=== PATIENT | male | born 1945 | race Native Hawaiian/Other Pacific Islander ===

== ENCOUNTER 2016-10-16 06:44 | Outpatient (CLI) | payer OTHER, MEDICARE | END 2016-10-17 01:56 | disposition home or self-care (01) | LOC: CT 06:44 | DX: M54.17 Radiculopathy, lumbosacral region (principal) ==

== ENCOUNTER 2016-11-04 04:51 | Outpatient (CLI) | payer OTHER, MEDICARE | END 2016-11-04 05:51 | disposition home or self-care (01) | LOC: LABW 04:51 | PROVIDERS: Internal Medicine Cardiovascular Disease | DX: E78.4 Other hyperlipidemia (principal) | CPT/HCPCS: 36415; 80061 ==

== ENCOUNTER 2018-04-09 08:21 | Outpatient (CLI) | payer OTHER, MEDICARE | END 2018-04-09 21:53 | disposition home or self-care (01) | LOC: MRI 08:21 | DX: M54.5 Low back pain (principal) | CPT/HCPCS: 36415; 82565; 84520; A9576 ==

== ENCOUNTER 2019-09-03 14:43 | Emergency (ER) | payer OTHER, MEDICARE ==
[~2019-09-03] VITALS: Ht 185.4 cm; Wt 95.7 kg
[2019-09-03 14:50] VITALS: TEMP 98.1
[2019-09-03 15:35] LABS: PLATELET COUNT 218 K/uL (142-355)
[2019-09-03 15:39] LABS: POTASSIUM 3.6 mmol/L (3.6-5.2)
[2019-09-03 15:50] VITALS: BP 166/81
== END 2019-09-03 15:50 | disposition home or self-care (01) ==
LOC: ED 14:43
PROVIDERS: Emergency Medicine
DX: L03.114 Cellulitis of left upper limb (principal); W55.01XA Bitten by cat, initial encounter; Y92.89 Other specified places as the place of occurrence of the external cause
CPT/HCPCS: 80053; 85027; 96372; 99283; J0696

== ENCOUNTER 2019-09-22 05:16 | Outpatient (CLI) | payer OTHER, MEDICARE | END 2019-09-22 19:08 | disposition home or self-care (01) | LOC: LABW 05:16 | PROVIDERS: Internal Medicine Cardiovascular Disease | DX: E78.49 Other hyperlipidemia (principal) | CPT/HCPCS: 36415; 80061; 80076 ==

== ENCOUNTER 2020-01-26 05:58 | Outpatient (CLI) | payer OTHER, MEDICARE | END 2020-01-26 23:07 | disposition home or self-care (01) | LOC: LAB 05:58 | PROVIDERS: Internal Medicine Cardiovascular Disease | DX: E78.49 Other hyperlipidemia (principal) | CPT/HCPCS: 36415; 80061; 80076 ==

== ENCOUNTER 2020-02-24 07:15 | Outpatient (CLI) | payer OTHER, MEDICARE ==
[2020-02-24 08:25] LABS: PLATELET COUNT 185 K/uL (142-355)
[2020-02-24 08:41] LABS: POTASSIUM 4.6 mmol/L (3.6-5.2)
== END 2020-02-24 22:29 | disposition home or self-care (01) ==
LOC: LABW 07:15
PROVIDERS: Internal Medicine Cardiovascular Disease
DX: I10 Essential (primary) hypertension (principal)
CPT/HCPCS: 36415; 80053; 85027

== ENCOUNTER 2021-10-27 15:40 | Outpatient (CLI) | payer OTHER, MEDICARE ==
[2021-10-27 15:57] LABS: PLATELET COUNT 230 K/uL (142-355)
== END 2021-10-27 21:10 | disposition home or self-care (01) ==
LOC: LABW 15:40
PROVIDERS: ATTEND Physical Medicine & Rehabilitation Pain Medicine
DX: M48.062 Spinal stenosis, lumbar region with neurogenic claudication (principal); Z79.899 Other long term (current) drug therapy
CPT/HCPCS: 36415; 80048; 85027; 85610; 87070

== ENCOUNTER 2022-03-06 07:04 | Outpatient (CLI) | payer OTHER, MEDICARE | END 2022-03-06 18:48 | disposition home or self-care (01) | LOC: LABW 07:04 | PROVIDERS: ATTEND Nurse Practitioner Family | DX: E78.5 Hyperlipidemia, unspecified (principal) | CPT/HCPCS: 36415; 80061; 80076 ==

== ENCOUNTER 2022-07-18 11:38 | Outpatient (CLI) | payer OTHER, MEDICARE ==
[2022-07-18 12:10] LABS: POTASSIUM 4.2 mmol/L (3.6-5.2)
== END 2022-07-18 20:59 | disposition home or self-care (01) ==
LOC: LABW 11:38
PROVIDERS: ATTEND Internal Medicine Clinical Cardiac Electrophysiology
DX: R60.0 Localized edema (principal)
CPT/HCPCS: 36415; 80048

== ENCOUNTER 2022-07-24 07:13 | Outpatient (CLI) | payer OTHER, MEDICARE ==
[2022-07-24 07:39] LABS: PLATELET COUNT 242 K/uL (142-355)
[2022-07-24 07:40] LABS: POTASSIUM 4.2 mmol/L (3.6-5.2)
== END 2022-07-24 19:33 | disposition home or self-care (01) ==
LOC: LABW 07:13
PROVIDERS: ATTEND Internal Medicine Clinical Cardiac Electrophysiology
DX: I48.19 Other persistent atrial fibrillation (principal)
CPT/HCPCS: 36415; 80048; 85027; 85610

== ENCOUNTER 2022-08-16 13:50 | Outpatient (CLI) | payer OTHER, MEDICARE | END 2022-08-16 19:00 | disposition home or self-care (01) | LOC: MRI 13:50 | PROVIDERS: ATTEND Physician Assistant | DX: M54.12 Radiculopathy, cervical region (principal) ==

== ENCOUNTER 2022-10-13 12:46 | Outpatient (CLI) | payer OTHER, MEDICARE | END 2022-10-13 18:57 | disposition home or self-care (01) | LOC: US 12:46 | PROVIDERS: ATTEND Physician Assistant Medical | DX: R10.30 Lower abdominal pain, unspecified (principal) ==

== ENCOUNTER 2023-01-26 08:44 | Outpatient (CLI) | payer OTHER, MEDICARE | END 2023-01-26 19:16 | disposition home or self-care (01) | LOC: MRI 08:44 | PROVIDERS: ATTEND Student in an Organized Health Care Education/Training Program | DX: M54.16 Radiculopathy, lumbar region (principal); M47.816 Spondylosis without myelopathy or radiculopathy, lumbar region; M48.062 Spinal stenosis, lumbar region with neurogenic claudication ==

== ENCOUNTER 2023-05-05 10:19 | Observation (INO) | payer OTHER, MEDICARE ==
[~2023-05-05] VITALS: Ht 185.4 cm; Wt 90.0 kg
[~2023-05-05 10:19] MED LIST: DEXAMETHASON6 MG PO; PERCOCET1 TA3 PO
[2023-05-05 10:23] VITALS: BP 156/107; TEMP 98.6
[2023-05-05 11:07] LABS: PLATELET COUNT 245 K/uL (142-355)
[2023-05-05 11:08] LABS: POTASSIUM 3.9 mmol/L (3.6-5.2)
[2023-05-05 12:30] VITALS: BP 154/85
[2023-05-05 14:23] VITALS: BP 137/74; TEMP 97.8
[2023-05-05 14:30] VITALS: BP 149/80
[2023-05-05 17:17] VITALS: BP 137/74; TEMP 97.8; Ht 185.4 cm; Wt 90.0 kg
[2023-05-05] MEDS ORDERED: ELIQUIS5 MG PO (17:29)
[2023-05-05] MEDS ORDERED: ISOS10TA14 PO (17:30)
[2023-05-05] MEDS ORDERED: METO25TA2 PO (17:30)
[2023-05-05] MEDS ORDERED: EZET10TA13 PO (17:30)
[2023-05-05] MEDS ORDERED: ILEVRO0.3 % OPTH (17:31)
[2023-05-05] MEDS ORDERED: OCUFLOX0.3 % OPTH (17:32)
[2023-05-05] MEDS ORDERED: PREDNISOLONE1 % OPTH (17:33)
[2023-05-05] MEDS ORDERED: HYDRALAZINE HY100 MG PO (17:34)
[2023-05-05] MEDS ORDERED: ZESTRIL40 MG PO (17:35)
[2023-05-05] MEDS ORDERED: ROSUVASTATIN CA40 MG PO (17:36)
[2023-05-05] MEDS ORDERED: ESOM40CA PO (17:36)
[2023-05-05] MEDS ORDERED: EQUATE EYE (17:37)
[2023-05-05] MEDS ORDERED: ASA LOW DOSE81 MG PO (17:37)
[2023-05-05] MEDS ORDERED: REFRES2 (17:38)
[2023-05-05 20:01] VITALS: BP 112/79; BP 114/78; TEMP 97.9
[2023-05-06] VITALS: BP 104/62; TEMP 97.9
[2023-05-06 04:00] VITALS: BP 133/76; TEMP 98
[2023-05-06 05:40] LABS: PLATELET COUNT 200 K/uL (142-355)
[2023-05-06 05:41] LABS: POTASSIUM 3.5 mmol/L (3.6-5.2)
[2023-05-06 07:54] VITALS: BP 146/75; TEMP 98.6
== END 2023-05-06 10:33 | disposition home or self-care (01) ==
LOC: ED 10:19 → MED/SURG 13:35
PROVIDERS: Family Medicine; ADMIT Internal Medicine Endocrinology, Diabetes & Metabolism; ATTEND Internal Medicine Endocrinology, Diabetes & Metabolism
DX: R42 Dizziness and giddiness (principal); R06.02 Shortness of breath; R11.0 Nausea; J20.9 Acute bronchitis, unspecified; I25.10 Atherosclerotic heart disease of native coronary artery without angina pectoris; R79.89 Other specified abnormal findings of blood chemistry; Z86.16 Personal history of COVID-19; I10 Essential (primary) hypertension; E78.49 Other hyperlipidemia; I48.91 Unspecified atrial fibrillation; Z79.01 Long term (current) use of anticoagulants
CPT/HCPCS: 36415; 80048; 80053; 81002; 83880; 84484; 85027; 85379; 87635; 93005; 96360; 96361; 96366; 96367; 99221; 99284; J1956; G0378; Q9963; U0003